=== PATIENT | female | born 1990 | race Caucasian/White ===

== ENCOUNTER 2020-04-11 10:43 | Emergency (ER) | payer OTHER | END 2020-04-11 11:23 | disposition home or self-care (01) | LOC: EDSEX 10:43 → BURERS 10:43 | DX: J02.0 Streptococcal pharyngitis (principal) | CPT/HCPCS: 87081; 87430; 99283 ==

== ENCOUNTER 2020-10-06 10:10 | Emergency (ER) | payer OTHER | END 2020-10-06 10:36 | disposition home or self-care (01) | LOC: BURERS 10:10 | DX: J06.9 Acute upper respiratory infection, unspecified (principal); F17.210 Nicotine dependence, cigarettes, uncomplicated; Z71.6 Tobacco abuse counseling | CPT/HCPCS: 99406 ==

== ENCOUNTER 2020-11-05 23:45 | Emergency (ER) | payer OTHER ==
[2020-11-06] MEDS ORDERED: Famotidine 20 MG TAB ONE (00:34)
[2020-11-06] MEDS ORDERED: hydrOXYzine 25 MG TAB ONE (00:34)
== END 2020-11-06 00:35 | disposition home or self-care (01) ==
LOC: BURERS 23:45
DX: K29.00 Acute gastritis without bleeding (principal); F41.9 Anxiety disorder, unspecified; F17.210 Nicotine dependence, cigarettes, uncomplicated